=== PATIENT | male | born 1990 | race Two or more races ===

== ENCOUNTER 2016-11-06 18:24 | Emergency (ER) | payer SELFPAY ==
[2016-11-06 19:43] LABS: URINE BILIRUBIN NEGATIVE (NEGATIVE); URINE BLOOD NEGATIVE (NEGATIVE); URINE GLUCOSE (UA) NEGATIVE (NEGATIVE); URINE LEUKOCYTE ESTERASE NEGATIVE (NEGATIVE); URINE NITRITE NEGATIVE (NEGATIVE); URINE PROTEIN NEGATIVE (NEGATIVE); URINE UROBILINOGEN NORMAL (0-1 mg/dl)
[2016-11-06 19:49] LABS: URINE APPEARANCE CLEAR; URINE COLOR YELLOW
--- NOTE | 2016-11-06 20:41 | US ---
Name: YAQUELIN POTTER Exam: Testicular ultrasound Comparison: None Clinical history: Testicular pain for one week Findings: Scrotal ultrasound was performed. Testicular size, shape and echogenicity are symmetric and within normal limits with right measuring 4.0 x 3.4 x 2.3 cm and the left measuring 4.2 x 3.1 x 2.3 cm. Blood flow is symmetric. There is no testicular mass or torsion. There is no calcification. A small amount of right scrotal fluid is present. There is no varicocele. There is a 3 mm right epididymal head cyst and there is a 2 mm left epididymal head cyst. Scrotal wall thickening is not present. Impression: 1. Normal sonographic appearance of the testes 2. Tiny bilateral epididymal head cysts 3. Small right hydrocele Note: The above report was uploaded to [facility]'s electronic medical records system at 2037 hours.
[2016-11-09 08:32] LABS: CHLAMYDIA BD Negative (Negative); N.GONORRHOEAE BD Negative (Negative); SOURCE Urine (())
== END 2016-11-06 21:05 | disposition home or self-care (01) ==
LOC: ED 18:24
DX: N50.3 Cyst of epididymis (principal); N50.819 Testicular pain, unspecified